=== PATIENT | male | born 1970 | race Two or more races ===

== ENCOUNTER 2018-03-21 12:01 | Emergency (ER) | payer OTHER ==
[~2018-03-21] VITALS: Ht 182.9 cm; Wt 81.6 kg
[2018-03-21 12:15] VITALS: BP 138/86
== END 2018-03-21 14:02 | disposition home or self-care (01) ==
LOC: ER 12:09
DX: M79.661 Pain in right lower leg (principal); I10 Essential (primary) hypertension; E11.9 Type 2 diabetes mellitus without complications; E78.5 Hyperlipidemia, unspecified; Z90.49 Acquired absence of other specified parts of digestive tract
CPT/HCPCS: 93971